=== PATIENT | female | born 1950 | race Caucasian/White ===

== ENCOUNTER 2020-12-01 10:25 | Emergency (ER) | payer MEDICARE, OTHER, SELFPAY ==
[2020-12-01] VITALS (11 sets, daily range): BP systolic 158–197; BP diastolic 74–103; PULSE 101–128; RESP 14–27; TEMP 36.4; O2SAT 95–99; BMI 41.5
--- NOTE | 2020-12-01 10:39 | ED_ITS ---
HPI - Chest Pain <ALEXUS Kcoh - Last Filed: 12/01/20 15:50> General Chief Complaint: Chest Pain Stated Complaint: pain just below neck in front Time Seen by Provider: 12/01/20 10:27 History of Present Illness HPI narrative: 70yo female with a history of HTN and obesity, presents to the emergency department for chest pain. She states last evening she fell asleep on the recliner with an ipad on her chest, when she woke at 5:00 a.m. she had substernal dull aching constant chest pain. She states it was worse when she tried to take a deep breath. Patient states after she woke she went to sleep in her bed, when she woke the chest pain remains still. She states it feels like a muscle soreness. It has decreased significantly but still remains. She denies any alleviating symptoms, reports taking deep breath can increased pain. She denies any fevers, cough, shortness of breath, dizziness, nausea, vomiting, diarrhea, or any other concerns. She losartan and metoprolol but has not taken HTCZ over the past few weeks. Related Data Home Medications Medication Instructions Recorded Confirmed HYDROCHLOROTHIAZIDE (#HCTZ) 25 mg PO EVERY DAY #0 11/27/11 aspirin 81 mg PO QDAY #0 11/27/11 losartan #0 12/18/12 melatonin #0 12/18/12 metoprolol tartrate #0 12/18/12 Allergies Allergy/AdvReac Type Severity Reaction Status Date / Time From FLONASE Allergy Mild Uncoded 12/01/20 10:41 LISINOPRIL Allergy Mild Uncoded 12/01/20 10:41 From OMNARIS Allergy Unknown CHEST Uncoded 12/01/20 10:41 DISCOMFORT Review of Systems <ALEXUS Koch - Last Filed: 12/01/20 15:50> Review of Systems Narrative: REVIEW OF SYSTEMS: GENERAL: Denies fevers. HENT: No head trauma. CARDIOVASCULAR: Reports chest pain, see HPI. RESPIRATORY: No shortness of breath. GASTROINTESTINAL: No nausea, vomiting, diarrhea, or constipation. MUSCULOSKELETAL: No weakness or injury. INTEGUMENTARY: No rash. Patient History <ALEXUS Koch - Last Filed: 12/01/20 15:50> Medical History HTN (hypertension) Social History Smoking Status: Never smoker Exam <ALEXUS Koch - Last Filed: 12/01/20 15:50> Initial Vital Signs Initial Vital Signs: Vital Signs Temperature 97.6 F 12/01/20 10:39 Pulse Rate 128 H 12/01/20 10:39 Respiratory Rate 18 12/01/20 10:39 Blood Pressure 195/103 H 12/01/20 10:39 Pulse Oximetry 98 12/01/20 10:39 PHYSICAL EXAMINATION: GENERAL: Awake and alert, slightly anxious appearing, obese female. HENT: Normocephalic, atraumatic. EYES: Conjunctiva pink, sclera white, no periorbital swelling. No discharge. CHEST: Normal to inspection and without deformities. CARDIOVASCULAR: S1 and S2 sounds normal. Regular rate and rhythm, no murmurs, clicks, or bruits. RESPIRATORY: Normal respiratory rate, trachea midline, airway patent. No st ridor, nasal flaring or accessory muscle use. Able to speak in full sentences. Lungs are clear in all curiel without wheeze, rhonchi, or crackles. No cough observed. MUSCULOSKELETAL: Normal gait and coordination. Equal tone and mass bilaterally. EXTREMITIES: Moves all extremities. SKIN: Warm, dry, soft, appropriate color for ethnicity. No lesions, rashes, or wounds to visualized areas. NEURO: Alert and Oriented X 3. Good coordination. No ataxia or cognitive issues. PSYCH: Appropriate affect and mood. <Neno Hector DO - Last Filed: 12/01/20 17:23> Initial Vital Signs Initial Vital Signs: Vital Signs Temperature 97.6 F 12/01/20 10:39 Pulse Rate 128 H 12/01/20 10:39 Respiratory Rate 18 12/01/20 10:39 Blood Pressure 195/103 H 12/01/20 10:39 Pulse Oximetry 98 12/01/20 10:39 Scores <ALEXUS Koch - Last Filed: 12/01/20 15:50> HEART Score Heart Score history: Slightly Suspicious Heart Score EKG: Normal Heart Score Age: > or = 65 years old Heart Score risk factors: 1-2 risk factors Heart Score troponin: < or = to normal limit Heart Score Total: 3 PERC Score Age greater than or equal to 50 years: Yes Heart rate greater than or equal to 100 bpm: Yes Room Air O2 Sat less than 95%: No Unilateral leg swelling: No Recent trauma or surgery: No Hemoptysis: No Prior PE or DVT: No Hormone Use: No Total PERC Score: 2 Wells' Criteria for PE Clinical signs and symptoms of DVT: No PE is #1 Dx or equally likely: No Heart rate > 100: Yes Immobilization at least 3 days or surg in previous 4 weeks: No History of PE or DVT: No Hemoptysis: No Malignancy w/Treatment within 6 months or palliative: No Wells' PE Score total: 1.5 Wells' Criteria for DVT Paralysis, paresis, or recent plaster immobilization of ext: No Previously documented DVT: No Alternative dx to DVT as likely or more likely: No Course <ALEXUS Koch - Last Filed: 12/01/20 15:50> Course Course Narrative: Initially, patient was given 1 nitro, no response to pain. 1200: Patient was really evaluated, denies any chest pain at this time. States that it resolved a few minutes ago. Toradol ordered for administration to see if this prevents return of chest pain. 1402: Discussed repeat test results with patient and family, EKG is within normal limits and troponin is negative. Patient still has a small amount of tachycardia, rate 103. She has not received a 10 of fluids, was instructed to keep her arm straight to increase fluid administration. Discussed that cardiac stress test was recommended as the next step. Discussed inpatient versus outpatient, patient states that she does not want to be admitted and would like to follow-up outpatient. 1413: Attempted to reach patient's primary care provider, unsuccessful. Discussed this with patient, she was encouraged to call the office today and or on Friday to schedule an appointment as soon as possible. We discussed strict return precautions. She was agreeable to plan of care. Orders Ordered: ED Orders 12/01/20 10:38 XR chest 1V Stat EKG-12 Lead Stat 12/01/20 10:50 Complete Blood Count AUTO DIFF Stat Comprehensive Metabolic Panel Stat D Dimer Stat Lipase Stat NT-proBNP (BNP-Adult 18+) Stat Troponin & CK Cardiac Panel Stat 12/01/20 12:50 EKG-12 Lead Stat 12/01/20 12:51 Troponin I Stat Discontinued Medications Aspirin (Aspirin 81 Mg Chew Tab) 324 mg PO NOW ONE Stop: 12/01/20 10:39 Last Admin: 12/01/20 11:02 Dose: 324 mg Documented by: RAKESH Sodium Chloride (Normal Saline 0.9%) 1,000 mls @ 150 mls/hr IV CONT KAROLYN Last Infusion: 12/01/20 12:45 Dose: 999 mls/hr Documented by: Admin: 12/01/20 11:07 Dose: 150 mls/hr Documented by: RAKESH Ketorolac Tromethamine (Ketorolac 60 Mg/2 Ml Vial) 30 mg IV NOW ONE Stop: 12/01/20 11:58 Last Admin: 12/01/20 12:03 Dose: 30 mg Documented by: RAKESH Nitroglycerin (Nitroglycerin 0.4 Mg Sl Tab) 0.4 mg SL NOW ONE Stop: 12/01/20 10:39 Last Admin: 12/01/20 11:05 Dose: 0.4 mg Documented by: RAKESH Consultations Consultation #1: Patient staffed with Dr. Hector, discussed tests, test results, and plan of care. Vital Signs Vital signs: Vital Signs - 8 hr 12/01/20 10:39 12/01/20 11:00 12/01/20 11:05 Temperature 97.6 F Pulse Rate 128 H 110 H 109 H Respiratory Rate 18 24 Blood Pressure 195/103 H 197/84 H 197/84 H Pulse Oximetry 98 12/01/20 11:30 12/01/20 12:00 12/01/20 12:30 Temperature Pulse Rate 104 H 104 H 102 H Respiratory Rate 16 14 20 Blood Pressure 166/77 H 166/78 H 177/84 H Pulse Oximetry 95 95 12/01/20 13:00 12/01/20 13:21 12/01/20 13:30 Temperature Pulse Rate 103 H 101 H 102 H Respiratory Rate 20 25 H 22 Blood Pressure Pulse Oximetry 99 96 95 12/01/20 14:00 12/01/20 14:17 Temperature Pulse Rate 105 H 106 H Respiratory Rate 27 H 25 H Blood Pressure 158/74 H Pulse Oximetry <Neno Hector DO - Last Filed: 12/01/20 17:23> Orders Ordered: ED Orders 12/01/20 10:38 XR chest 1V Stat EKG-12 Lead Stat 12/01/20 10:50 Complete Blood Count AUTO DIFF Stat Comprehensive Metabolic Panel Stat D Dimer Stat Lipase Stat NT-proBNP (BNP-Adult 18+) Stat Troponin & CK Cardiac Panel Stat 12/01/20 12:50 EKG-12 Lead Stat 12/01/20 12:51 Troponin I Stat Discontinued Medications Aspirin (Aspirin 81 Mg Chew Tab) 324 mg PO NOW ONE Stop: 12/01/20 10:39 Last Admin: 12/01/20 11:02 Dose: 324 mg Documented by: RAKESH Sodium Chloride (Normal Saline 0.9%) 1,000 mls @ 150 mls/hr IV CONT KAROLYN Last Infusion: 12/01/20 12:45 Dose: 999 mls/hr Documented by: Admin: 12/01/20 11:07 Dose: 150 mls/hr Documented by: RAKESH Ketorolac Tromethamine (Ketorolac 60 Mg/2 Ml Vial) 30 mg IV NOW ONE Stop: 12/01/20 11:58 Last Admin: 12/01/20 12:03 Dose: 30 mg Documented by: RAKESH Nitroglycerin (Nitroglycerin 0.4 Mg Sl Tab) 0.4 mg SL NOW ONE Stop: 12/01/20 10:39 Last Admin: 12/01/20 11:05 Dose: 0.4 mg Documented by: RAKESH Vital Signs Vital signs: Vital Signs - 8 hr 12/01/20 10:39 12/01/20 11:00 12/01/20 11:05 Temperature 97.6 F Pulse Rate 128 H 110 H 109 H Respiratory Rate 18 24 Blood Pressure 195/103 H 197/84 H 197/84 H Pulse Oximetry 98 12/01/20 11:30 12/01/20 12:00 12/01/20 12:30 Temperature Pulse Rate 104 H 104 H 102 H Respiratory Rate 16 14 20 Blood Pressure 166/77 H 166/78 H 177/84 H Pulse Oximetry 95 95 12/01/20 13:00 12/01/20 13:21 12/01/20 13:30 Temperature Pulse Rate 103 H 101 H 102 H Respiratory Rate 20 25 H 22 Blood Pressure Pulse Oximetry 99 96 95 12/01/20 14:00 12/01/20 14:17 Temperature Pulse Rate 105 H 106 H Respiratory Rate 27 H 25 H Blood Pressure 158/74 H Pulse Oximetry MDM - Chest Pain <Jenna Hedlin, PERSONAL HEALTH COACH - Last Filed: 12/01/20 15:50> Medical Records Data Attestation: I reviewed the patient's medical records. Lab Data Attestation: I reviewed the patient's lab results. Result diagrams: 12/01/20 10:50 12/01/20 10:50 Labs: Lab Results 12/01/20 12/01/20 12/01/20 Range/Units 10:50 10:50 10:50 WBC 9.8 (4.5-11.0) X10^3/uL RBC 4.90 (4.0-5.2) X10^6/uL Hgb 15.5 (12.0-16.0) g/dL Hct 47.2 H (36-46) % MCV 96.4 (80-100) fL MCH 31.7 (26-34) PG MCHC 32.9 (30-36) % RDW 13.4 (11.6-14.8) % Plt Count 215 (150-400) X10^3/uL Neut % (Auto) 82.1 H (50-75) % Lymph % (Auto) 9.9 L (25-40) % [place] % (Auto) 7.4 (3-14) % Eos % (Auto) 0.3 L (2-4) % Baso % (Auto) 0.3 (0-2) % Neut # (Auto) 8100 H (8598-0672) /uL Lymph # (Auto) 1000 L (0332-7435) /uL [place] # (Auto) 700 (0-900) /uL Eos # (Auto) 0 (0-450) /uL Baso # (Auto) 0 (0-100) /uL D-Dimer 205 (<230) ng/mL Sodium 138 (137-145) mmol/L Potassium 3.5 (3.4-5.1) mmol/L Chloride 102 (98-107) mmol/L Carbon Dioxide 30 (22-32) mmol/L BUN 22 H (7-17) mg/dL Creatinine 0.78 (0.52-1.04) mg/dL Estimated GFR > 60.0 (>60) mL/min BUN/Creatinine Ratio 28.2 H (6-22) Glucose 130 H (80-110) mg/dL Calcium 9.6 (8.4-10.2) mg/dL Total Bilirubin 0.8 (0.2-1.3) mg/dL AST 35 (14-36) IU/L ALT 25 (<35) IU/L Alkaline Phosphatase 86 (38-126) U/L Total Creatine Kinase 51 (30-135) U/L CK-MB (CK-2) TNP CK-MB (CK-2) Rel Index TNP Troponin I < 0.012 (0.01-0.034) ng/mL NT-Pro-B Natriuret Pep (<125) pg/mL Total Protein 7.6 (6.3-8.2) g/dL Albumin 4.6 (3.5-5.0) g/dL Globulin 3.0 (1.7-4.1) g/dL Albumin/Globulin Ratio 1.5 (1.0-2.8) Lipase 108 (23-300) U/L 12/01/20 12/01/20 Range/Units 10:50 12:51 WBC (4.5-11.0) X10^3/uL RBC (4.0-5.2) X10^6/uL Hgb (12.0-16.0) g/dL Hct (36-46) % MCV (80-100) fL MCH (26-34) PG MCHC (30-36) % RDW (11.6-14.8) % Plt Count (150-400) X10^3/uL Neut % (Auto) (50-75) % Lymph % (Auto) (25-40) % [place] % (Auto) (3-14) % Eos % (Auto) (2-4) % Baso % (Auto) (0-2) % Neut # (Auto) (5261-7477) /uL Lymph # (Auto) (2020-7321) /uL [place] # (Auto) (0-900) /uL Eos # (Auto) (0-450) /uL Baso # (Auto) (0-100) /uL D-Dimer (<230) ng/mL Sodium (137-145) mmol/L Potassium (3.4-5.1) mmol/L Chloride (98-107) mmol/L Carbon Dioxide (22-32) mmol/L BUN (7-17) mg/dL Creatinine (0.52-1.04) mg/dL Estimated GFR (>60) mL/min BUN/Creatinine Ratio (6-22) Glucose (80-110) mg/dL Calcium (8.4-10.2) mg/dL Total Bilirubin (0.2-1.3) mg/dL AST (14-36) IU/L ALT (<35) IU/L Alkaline Phosphatase (38-126) U/L Total Creatine Kinase (30-135) U/L CK-MB (CK-2) CK-MB (CK-2) Rel Index Troponin I < 0.012 (0.01-0.034) ng/mL NT-Pro-B Natriuret Pep 81 (<125) pg/mL Total Protein (6.3-8.2) g/dL Albumin (3.5-5.0) g/dL Globulin (1.7-4.1) g/dL Albumin/Globulin Ratio (1.0-2.8) Lipase (23-300) U/L Imaging Data Chest x-ray: Radiologist's Impression: [address] [id number] ReportSigned Patient: Dania Fraga LMR#: [id number]: 9Acct:[id number]/Sex: 70 / FDate of Service: 12/01/20Loc: EDAccession Number: [id number] Procedure: XR chest 1V Ordering Provider: Jenna Weston PROCEDURE: XR CHEST 1V INDICATIONS: chest pain TECHNIQUE: One view of the chest was acquired. COMPARISON: [facility], CHEST 1 VIEW, 04/18/2013, 10:04. [facility], CHEST 1 VIEW, 02/04/2013, 8:21. FINDINGS: Surgical changes and devices: None. Lungs and pleura: Lungs are clear. No pleural effusions or pneumothorax. Mediastinum: Mediastinal contours appear normal. Heart size is normal. The aorta is tortuous. Bones and chest wall: No suspicious bony lesions. Overlying soft tissues appear unremarkable. IMPRESSION: No acute cardiopulmonary abnormality. Dictated by: Vamsi Ma M.D. on 12/01/2020 at 11:14 Approved by: Vamsi Ma M.D. on 12/01/2020 at 11:15 ECG Data Interpretation: 1047: Sinus rhythm, rate 112, KS interval 96, QTC 647. No ST elevation or ST depression. T-wave inversion noted in V1. No ectopy. EKG also viewed by Dr. Hector. 1256: Sinus rate, rate 102, KS interval 186, QTC 466. No ST elevation or ST depression. T-wave inversion noted in V1. No ectopy. EKG also viewed by Dr. Hector. 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 I suspect patient's pain is most likely musculoskeletal given location and improvement of pain after Toradol administration. This may be related to how she fell asleep and with iPad on the chest. However, she does have some risk factors and it was recommended that she follows up with her doctor to discuss indications for a cardiac stress test. I have lower suspicion for ACS at this time given non-remarkable repeat EKGs, and serial negative troponins. Chest x-rays negative, chest pain was not changed with nitroglycerin. No worsening pain with exertion. Patient's heart score was 3, discussed admission versus outpatient. Patient strongly preferred outpatient. Attempted to contact patient's provider to discuss cardiac stress test, unable to get a hold of her at this time. Less likely PE, well's criteria of 1.5, PERC score of 2 which is lower risk, but D-dimer was ordered due to tachycardia and chest pain. D-dimer was negative. Less likely infectious etiology given lack of cough, presence of clear chest x- ray, and lack of fever. Patient did initially present with some tachycardia, this decreased after some time in the emergency department and fluids. However, she did have a rate of 103 upon discharge. Heart rate seemed to increase every time i walked into the room. We discussed very strict return precautions. Patient was agreeable to plan of care. <Neno Hector, DO - Last Filed: 12/01/20 17:23> Lab Data Labs: Lab Results 12/01/20 12/01/20 12/01/20 Range/Units 10:50 10:50 10:50 WBC 9.8 (4.5-11.0) X10^3/uL RBC 4.90 (4.0-5.2) X10^6/uL Hgb 15.5 (12.0-16.0) g/dL Hct 47.2 H (36-46) % MCV 96.4 (80-100) fL MCH 31.7 (26-34) PG MCHC 32.9 (30-36) % RDW 13.4 (11.6-14.8) % Plt Count 215 (150-400) X10^3/uL Neut % (Auto) 82.1 H (50-75) % Lymph % (Auto) 9.9 L (25-40) % [place] % (Auto) 7.4 (3-14) % Eos % (Auto) 0.3 L (2-4) % Baso % (Auto) 0.3 (0-2) % Neut # (Auto) 8100 H (7837-6494) /uL Lymph # (Auto) 1000 L (9064-8676) /uL [place] # (Auto) 700 (0-900) /uL Eos # (Auto) 0 (0-450) /uL Baso # (Auto) 0 (0-100) /uL D-Dimer 205 (<230) ng/mL Sodium 138 (137-145) mmol/L Potassium 3.5 (3.4-5.1) mmol/L Chloride 102 (98-107) mmol/L Carbon Dioxide 30 (22-32) mmol/L BUN 22 H (7-17) mg/dL Creatinine 0.78 (0.52-1.04) mg/dL Estimated GFR > 60.0 (>60) mL/min BUN/Creatinine Ratio 28.2 H (6-22) Glucose 130 H (80-110) mg/dL Calcium 9.6 (8.4-10.2) mg/dL Total Bilirubin 0.8 (0.2-1.3) mg/dL AST 35 (14-36) IU/L ALT 25 (<35) IU/L Alkaline Phosphatase 86 (38-126) U/L Total Creatine Kinase 51 (30-135) U/L CK-MB (CK-2) TNP CK-MB (CK-2) Rel Index TNP Troponin I < 0.012 (0.01-0.034) ng/mL NT-Pro-B Natriuret Pep (<125) pg/mL Total Protein 7.6 (6.3-8.2) g/dL Albumin 4.6 (3.5-5.0) g/dL Globulin 3.0 (1.7-4.1) g/dL Albumin/Globulin Ratio 1.5 (1.0-2.8) Lipase 108 (23-300) U/L 12/01/20 12/01/20 Range/Units 10:50 12:51 WBC (4.5-11.0) X10^3/uL RBC (4.0-5.2) X10^6/uL Hgb (12.0-16.0) g/dL Hct (36-46) % MCV (80-100) fL MCH (26-34) PG MCHC (30-36) % RDW (11.6-14.8) % Plt Count (150-400) X10^3/uL Neut % (Auto) (50-75) % Lymph % (Auto) (25-40) % [place] % (Auto) (3-14) % Eos % (Auto) (2-4) % Baso % (Auto) (0-2) % Neut # (Auto) (3317-1682) /uL Lymph # (Auto) (8203-6183) /uL [place] # (Auto) (0-900) /uL Eos # (Auto) (0-450) /uL Baso # (Auto) (0-100) /uL D-Dimer (<230) ng/mL Sodium (137-145) mmol/L Potassium (3.4-5.1) mmol/L Chloride (98-107) mmol/L Carbon Dioxide (22-32) mmol/L BUN (7-17) mg/dL Creatinine (0.52-1.04) mg/dL Estimated GFR (>60) mL/min BUN/Creatinine Ratio (6-22) Glucose (80-110) mg/dL Calcium (8.4-10.2) mg/dL Total Bilirubin (0.2-1.3) mg/dL AST (14-36) IU/L ALT (<35) IU/L Alkaline Phosphatase (38-126) U/L Total Creatine Kinase (30-135) U/L CK-MB (CK-2) CK-MB (CK-2) Rel Index Troponin I < 0.012 (0.01-0.034) ng/mL NT-Pro-B Natriuret Pep 81 (<125) pg/mL Total Protein (6.3-8.2) g/dL Albumin (3.5-5.0) g/dL Globulin (1.7-4.1) g/dL Albumin/Globulin Ratio (1.0-2.8) Lipase (23-300) U/L Discharge Plan Departure Patient Disposition: Home Clinical Impression: Atypical chest pain Instructions: DI for Atypical Chest Pain, DI for Costochondritis Activity Restrictions/Additional Instructions: Thank you for entrusting me with your care today. As discussed, your laboratory work, EKG, chest x-ray are within normal limits. It is possible that your pain may be musculoskeletal, however given risk factors of hypertension and age, it is recommended that you follow-up with your provider to discuss a cardiac stress test. Attempted to call the clinic today, there was no answer. Please call and schedule an appointment as soon as possible on Friday, tell them you have been seen in the emergency department for chest pain and a follow-up appointment and cardiac stress test was recommended. Please return emergency department for any new or worsening symptoms including worsening chest pain, fevers, shortness of breath, dizziness, nausea, vomiting, diarrhea, or any other concerns. Prescriptions: No Action HYDROCHLOROTHIAZIDE (#HCTZ) 25 mg PO EVERY DAY Qty: 0 RF: 0 aspirin 81 MG tablet,chewable 81 mg PO QDAY Qty: 0 RF: 0 losartan 50 MG tablet Qty: 0 RF: 0 metoprolol tartrate 25 MG tablet Qty: 0 RF: 0 melatonin 3 MG tablet Qty: 0 RF: 0 <Neno Hector DO - Last Filed: 12/01/20 17:23> Cosign ED Attending Cosignature Attestation: I was immediately available in the department for consultation. This documentation has been reviewed and I agree with assessment and plan. Supervised by Neno Hector DO
[2020-12-01] MEDS: ASPIRIN 81 MG CHEW TAB 324 MG PO (11:02)
[2020-12-01] MEDS: NITROGLYCERIN 0.4 MG SL TAB SL (11:05)
[2020-12-01] MEDS: SODIUM CHLORIDE 0.9% 1,000 ML 150 ML IV (11:07)
[2020-12-01 11:12] LABS: Add Manual Diff / Slide Review NO; Basophils Absolute Auto 0 /uL (0-100); Basophils Percent Auto 0.3 % (0-2); Eosinophils Absolute Auto 0 /uL (0-450); Eosinophils Percent Auto 0.3 % (2-4); Hematocrit 47.2 % (36-46); Hemoglobin 15.5 g/dL (12.0-16.0); Lymphocytes Absolute Auto 1000 /uL (1100-4500); Lymphocytes Percent Auto 9.9 % (25-40); Mean Corpuscular HGB Conc 32.9 % (30-36); Mean Corpuscular Hemoglobin 31.7 PG (26-34); Mean Corpuscular Volume 96.4 fL (80-100); Monocytes Absolute Auto 700 /uL (0-900); Monocytes Percent Auto 7.4 % (3-14); Neutrophils Absolute Auto 8100 /uL (1500-7000); Neutrophils Percent Auto 82.1 % (50-75); Platelet Count 215 X10^3/uL (150-400); Red Cell Distribution Width 13.4 % (11.6-14.8); White Blood Cell Count 9.8 X10^3/uL (4.5-11.0)
[2020-12-01 11:23] LABS: D Dimer 205 ng/mL (<230)
[2020-12-01 11:27] LABS: Alanine Aminotransferase 25 IU/L (<35); Albumin 4.6 g/dL (3.5-5.0); Albumin Globulin Ratio 1.5 (1.0-2.8); Alkaline Phosphatase 86 U/L (38-126); Aspartate Aminotransferase 35 IU/L (14-36); BUN Creatinine Ratio 28.2 (6-22); Bilirubin Total 0.8 mg/dL (0.2-1.3); Blood Urea Nitrogen 22 mg/dL (7-17); Calcium 9.6 mg/dL (8.4-10.2); Carbon Dioxide 30 mmol/L (22-32); Chloride 102 mmol/L (98-107); Creatine Kinase 51 U/L (30-135); Estimated Glomerular Filt Rate > 60.0 mL/min (>60); Glucose 130 mg/dL (80-110); HEMOLYSIS 32 (0-50); Lipase 108 U/L (23-300); Potassium 3.5 mmol/L (3.4-5.1); Sodium 138 mmol/L (137-145); Total Protein 7.6 g/dL (6.3-8.2)
[2020-12-01 11:36] LABS: NT-proBNP (BNP-Adult 18+) 81 pg/mL (<125)
[2020-12-01 11:39] LABS: Troponin I < 0.012 ng/mL (0.01-0.034)
[2020-12-01] MEDS: KETOROLAC 60 MG/2 ML VIAL 30 MG IV (12:03)
--- NOTE | 2020-12-01 12:12 | PC.NURSE ---
At patients request spouse updated via phone
[2020-12-01 13:32] LABS: Troponin I < 0.012 ng/mL (0.01-0.034)
== END 2020-12-01 14:22 | disposition home or self-care (01) ==
PROVIDERS: Emergency Provider Nurse Practitioner
DX: R07.89 Other chest pain (principal); I10 Essential (primary) hypertension; E66.9 Obesity, unspecified; Z68.41 Body mass index [BMI] 40.0-44.9, adult
CPT/HCPCS: 36415; 71045; 80053; 82550; 83690; 83880; 84484; 85025; 85379; 93005; 93010; 96361; 96374; 99284; J1885

== ENCOUNTER 2024-01-23 21:05 | Emergency (ER) | payer MEDICARE, OTHER, SELFPAY ==
[2024-01-23] VITALS (8 sets, daily range): BP systolic 140–194; BP diastolic 60–91; PULSE 37–84; RESP 18; TEMP 36.9; O2SAT 91–98; BMI 45.3
[2024-01-23 21:36] LABS: Add Manual Diff / Slide Review NO; Basophils Absolute Auto 0 /uL (0-100); Basophils Percent Auto 0.4 % (0-2); Eosinophils Absolute Auto 100 /uL (0-450); Hematocrit 47.2 % (36-46); Hemoglobin 15.7 g/dL (12.0-16.0); Lymphocytes Absolute Auto 1900 /uL (1100-4500); Lymphocytes Percent Auto 22.3 % (25-40); Mean Corpuscular HGB Conc 33.4 % (30-36); Mean Corpuscular Hemoglobin 31.4 PG (26-34); Monocytes Absolute Auto 800 /uL (0-900); Neutrophils Absolute Auto 5800 /uL (1500-7000); Neutrophils Percent Auto 67.3 % (50-75); Platelet Count 230 X10^3/uL (150-400); Red Blood Cell Count 5.02 X10^6/uL (4.0-5.2); Red Cell Distribution Width 13.7 % (11.6-14.8); White Blood Cell Count 8.7 X10^3/uL (4.5-11.0)
--- NOTE | 2024-01-23 21:41 | DI.US.S_ITS ---
PROCEDURE: US ABDOMEN LIMITED INDICATIONS: RUQ ABD PAIN TECHNIQUE: Real-time focused scanning was performed of the abdomen, with image documentation. COMPARISON: None. FINDINGS: This study is highly limited by patient body habitus. The liver is normal in size and demonstrates no suspicious lesions. The gallbladder is not seen. The sonographic Yousif sign is negative. The biliary tree is not seen. No andrew pancreas abnormality can be seen. The pancreas demonstrates generalized echogenicity. No free fluid can be seen. IMPRESSION: Nondiagnostic study, without visualization of the gallbladder or biliary tree. Note: Concordant preliminary findings given by the property utilization manager upon the completion of the examination to emergency department. Dictated by: Lei Salazar M.D. on 01/23/2024 at 21:30 Approved by: Lei Salazar M.D. on 01/23/2024 at 21:32
--- NOTE | 2024-01-23 21:51 | ED_ITS ---
HPI - Abdominal Pain General Chief Complaint: Abdominal Pain Stated Complaint: thinks appendicitis Time Seen by Provider: 01/23/24 21:37 Source: patient Mode of arrival: Ambulatory History of Present Illness HPI narrative: 73-year-old female presents for approximately 7 hours of right-sided ?twinging? abdominal pain. Patient points to her right upper quadrant just below her ribcage as source of pain. Patient can not identify what makes the pain come or go, no medications taken at home for symptoms. Patient states that numerous family members have had issues with her appendix and she was concerned that she may have appendicitis. Related Data Home Medications Medication Instructions Recorded Confirmed HYDROCHLOROTHIAZIDE (#HCTZ) 25 mg PO EVERY DAY ##0 11/27/11 aspirin 81 mg chewable tablet 81 mg PO QDAY ##0 11/27/11 losartan 50 mg tablet ##0 12/18/12 melatonin 3 mg tablet ##0 12/18/12 metoprolol tartrate 25 mg tablet ##0 12/18/12 Allergies Allergy/AdvReac Type Severity Reaction Status Date / Time From FLONASE Allergy Mild Uncoded 12/01/20 10:41 LISINOPRIL Allergy Mild Uncoded 12/01/20 10:41 From OMNARIS Allergy Unknown CHEST Uncoded 12/01/20 10:41 DISCOMFORT Review of Systems Review of Systems Narrative: Negative except as noted above Patient History Medical History HTN (hypertension) Social History Smoking Status: Never smoker Smoking Status: Never smoker Substance Use Type: does not use Exam Initial Vital Signs Initial Vital Signs: Vital Signs Pulse Rate 84 01/23/24 21:15 Pulse Oximetry 96 01/23/24 21:15 Const: Awake, alert, frail, nontoxic Cardiac: regular rate, regular rhythm RESP: unlabored, clear bilaterally, no wheezing GI: Soft, no significant reproducible to palpation in the right upper or right lower quadrants Skin: Warm, Dry, intact, no rashes Neuro: AO x3, CN II-XII grossly intact, moves all extremities Course Orders Ordered: Discontinued Medications Ondansetron HCl (Ondansetron 4 Mg Odt) 4 mg PO NOW PRN PRN Reason: Nausea And Vomiting Ondansetron HCl (Ondansetron 4 Mg/2 Ml Inj) 4 mg IV NOW PRN PRN Reason: Nausea And Vomiting Vital Signs Vital signs: Vital Signs - 8 hr 01/23/24 21:15 01/23/24 21:16 01/23/24 21:16 Temperature Pulse Rate 84 80 Respiratory Rate Blood Pressure 194/91 H Pulse Oximetry 96 98 Oxygen Delivery Method 01/23/24 21:21 01/23/24 21:30 01/23/24 22:00 Temperature 98.4 F Pulse Rate 81 75 83 Respiratory Rate 18 Blood Pressure 194/91 H Pulse Oximetry 98 97 97 Oxygen Delivery Method Room Air 01/23/24 22:44 01/23/24 22:45 01/23/24 22:45 Temperature Pulse Rate 37 L 69 Respiratory Rate Blood Pressure 160/76 H Pulse Oximetry 91 97 Oxygen Delivery Method MDM - Abdominal Pain Differential Diagnosis Differential diagnosis: Likely abdominal pain, acute appendicitis and calculus of kidney Lab Data 01/23/24 21:25 01/23/24 21:25 Labs: Lab Results 01/23/24 01/23/24 Range/Units 21:25 22:03 WBC 8.7 (4.5-11.0) X10^3/uL RBC 5.02 (4.0-5.2) X10^6/uL Hgb 15.7 (12.0-16.0) g/dL Hct 47.2 H (36-46) % MCV 94.0 (80-100) fL MCH 31.4 (26-34) PG MCHC 33.4 (30-36) % RDW 13.7 (11.6-14.8) % Plt Count 230 (150-400) X10^3/uL Neut % (Auto) 67.3 (50-75) % Lymph % (Auto) 22.3 L (25-40) % [place] % (Auto) 9.0 (3-14) % Eos % (Auto) 1.0 L (2-4) % Baso % (Auto) 0.4 (0-2) % Neut # (Auto) 5800 (5526-9977) /uL Lymph # (Auto) 1900 (8626-5369) /uL [place] # (Auto) 800 (0-900) /uL Eos # (Auto) 100 (0-450) /uL Baso # (Auto) 0 (0-100) /uL Sodium 138 (137-145) mmol/L Potassium 4.2 (3.4-5.1) mmol/L Chloride 105 (98-107) mmol/L Carbon Dioxide 30 (22-32) mmol/L BUN 25 H (7-17) mg/dL Creatinine 1.56 H (0.52-1.04) mg/dL Estimated GFR 35 L (>60) mL/min BUN/Creatinine Ratio 16.0 (6-22) Glucose 115 H (80-110) mg/dL Calcium 9.9 (8.4-10.2) mg/dL Total Bilirubin 0.6 (0.2-1.3) mg/dL AST 26 (14-36) IU/L ALT 24 (<35) IU/L Alkaline Phosphatase 92 (38-126) U/L Total Protein 6.6 (6.3-8.2) g/dL Albumin 4.1 (3.5-5.0) g/dL Globulin 2.5 (1.7-4.1) g/dL Albumin/Globulin Ratio 1.6 (1.0-2.8) Lipase 172 (23-300) U/L Urine RBC None seen (0-5/HPF) Urine WBC None seen (0-5/HPF) Ur Squamous Epith Cells 0-1 /hpf (0-5/HPF) Urine Bacteria None seen (None) Ur Culture Indicated? Cult not indicated Vol Urine Centrifuged 10ml (spun) Point of care testing: Urine Dip Bedside Urine Glucose Negative Bedside Urine Bilirubin - Negative Bedside Urine Ketone - Negative Urine Specific [place] 1.015 Bedside Urine Occult Blood + Bedside Urine pH 6.0 Bedside Urine Protein - Negative Bedside Urine Urobilinogen - Negative Bedside Urine Nitrite - Negative Bedside Urine Leukocytes - Negative Esterase Imaging Data US - abdomen: Radiologist's Impression: PROCEDURE: US ABDOMEN LIMITED INDICATIONS: RUQ ABD PAIN TECHNIQUE: Real-time focused scanning was performed of the abdomen, with image documentation. COMPARISON: None. FINDINGS: This study is highly limited by patient body habitus. The liver is normal in size and demonstrates no suspicious lesions. The gallbladder is not seen. The sonographic Yousif sign is negative. The biliary tree is not seen. No andrew pancreas abnormality can be seen. The pancreas demonstrates generalized echogenicity. No free fluid can be seen. IMPRESSION: Nondiagnostic study, without visualization of the gallbladder or biliary tree. Note: Concordant preliminary findings given by the bass singer upon the completion of the examination to emergency department. Dictated by: Lei Salazar M.D. on 01/23/2024 at 21:30 Approved by: Lei Salazar M.D. on 01/23/2024 at 21:32 CT scan - abdomen/pelvis: Radiologist's Impression: PROCEDURE: CT ABDOMEN PELVIS WO CON INDICATIONS: RUQ AND RLQ ABD PAIN TECHNIQUE: Axial sections were acquired from the lung bases to the pubic symphysis. Coronal and sagittal reformats were performed. For radiation dose reduction, the following was used: automated exposure control, adjustment of mA and/or kV according to patient size. COMPARISON: [facility], CT, PE STUDY (CTA CHEST), 12/18/2012, 8:30. [facility], US, US ABDOMEN LIMITED, 01/23/2024, 22:05. FINDINGS: Image quality: Diagnostic. Lower Chest: A small hiatal hernia is incidentally noted. URINARY: Right Kidney: No stones or hydronephrosis. Right Ureter: No hydroureter. Left Kidney: There is a 3 mm nonobstructing left-sided kidney stone. No hydronephrosis is seen. Left Ureter: No hydroureter. Bladder: Normal wall thickness. No stones. ABDOMEN: Liver: No contour-deforming solid mass. Gallbladder: No radiopaque gallstones or wall thickening. No findings of right upper quadrant inflammatory change can be seen. Biliary ducts: No biliary dilation. Pancreas: No ductal dilation. Spleen: Size is within normal limits. Adrenal Glands: There is a right adrenal nodule seen that measures 5 Hounsfield units and measures 2.5 cm. There is a left adrenal nodule seen that measures 1.9 cm and measures -2Hounsfield units. Stomach and Bowel: No appendix (either normal or abnormal) is identified on this study. No focal right lower quadrant inflammatory change can be seen. Colonic diverticulosis is seen, without findings of active diverticulitis. The more proximal colon is within normal limits. No dilated loops of small bowel are seen. Peritoneum: No abnormal intraperitoneal fluid. No free air. Ventral Wall: There is a upoy-rt-jcasokbj fat containing periumbilical hernia Abdominal Nodes: No enlarged retroperitoneal or mesenteric lymph nodes. Vessels: Aorta and inferior vena cava are normal in size. Atherosclerotic calcification is noted. PELVIS: Pelvic Organs: The endometrial stripe appears thickened at 13 mm. No adnexal masses are seen. Pelvic Nodes: Unremarkable. Miscellaneous: No inguinal hernias are seen. Bones: Age-appropriate bony degenerative changes are seen. IMPRESSION: Normal appearing gallbladder, without right upper quadrant inflammatory change. No appendix (either normal or abnormal) is identified on this study. No significant right lower quadrant inflammatory change is seen. Endometrial stripe appears thickened at 13 mm. Please correlate with postmenopausal bleeding. If clinically appropriate, a follow-up pelvic ultrasound could be considered for further evaluation. Additional findings: Small hiatal hernia Benign bilateral lipid rich adrenal adenomas, stable from 2012 3 mm nonobstructing left-sided kidney stone. Szcr-hl-gddbziei fat containing periumbilical hernia Diverticulosis, without active diverticulitis Dictated by: Lei Salazar M.D. on 01/23/2024 at 21:54 Approved by: Lei Salazar M.D. on 01/23/2024 at 22:00 [facility] Narrative Medical decision making narrative: Well-appearing patient with right-sided symptoms. Patient reports that she was concerned about her appendix, however her pain is mostly in the right upper quadrant and more consistent with either hepatic or biliary process. Abdomen is soft, negative Yousif's sign. Ultrasound of the abdomen is nondiagnostic due to overlying bowel gas. Plan to order CT of the abdomen and pelvis. Laboratory work thus far is relatively unremarkable. There was no leukocytosis, liver enzymes are normal. Patient has a creatinine of 1.56 and GFR of 35, back in 2020 creatinine was 0.78 and GFR greater than 60, however there are no interval laboratory results to determine chronicity of this finding. CT of the abdomen and pelvis shows no acute abnormalities. The appendix was not visualized but there were no surrounding inflammatory changes indicative of appendicitis. With normal labs, reassuring abdominal exam, and no secondary signs of appendicitis patient stable for discharge home. She was informed of her creatinine results as well as her CT findings. Recommended close PCP follow up, especially for her elevated creatinine. Strict ED return precautions discussed at bedside with patient and . Discharge Plan Departure Patient Disposition: Home Clinical Impression: Abdominal pain Instructions: DI for Abdominal Pain-Adult Activity Restrictions/Additional Instructions: Your laboratory work today did not show any signs infection. I would like to point out that your kidney function is higher today than it was in 202, however I do not have any interval labs to compare to other than from December 01, 2020. Your appendix was not identified on the CT scan, however there were no inflammatory changes in your pain is not consistent with appendicitis. If you continue to experience pain you may return for repeat evaluation in 24-48 hours, however I have a very low suspicion for appendicitis at this time. Please follow up with your primary care physician Prescriptions: No Action HYDROCHLOROTHIAZIDE (#HCTZ) 25 mg PO EVERY DAY Qty: 0 aspirin 81 MG tablet,chewable 81 mg PO QDAY Qty: 0 losartan 50 MG tablet Qty: 0 metoprolol tartrate 25 MG tablet Qty: 0 melatonin 3 MG tablet Qty: 0 Stand Alone Forms: Patient Portal/API
[2024-01-23 21:52] LABS: Alanine Aminotransferase 24 IU/L (<35); Albumin 4.1 g/dL (3.5-5.0); Albumin Globulin Ratio 1.6 (1.0-2.8); Alkaline Phosphatase 92 U/L (38-126); Aspartate Aminotransferase 26 IU/L (14-36); Bilirubin Total 0.6 mg/dL (0.2-1.3); Blood Urea Nitrogen 25 mg/dL (7-17); Calcium 9.9 mg/dL (8.4-10.2); Carbon Dioxide 30 mmol/L (22-32); Chloride 105 mmol/L (98-107); Estimated Glomerular Filt Rate 35 mL/min (>60); Globulin 2.5 g/dL (1.7-4.1); Glucose 115 mg/dL (80-110); HEMOLYSIS 41 (0-50); Lipase 172 U/L (23-300); Potassium 4.2 mmol/L (3.4-5.1); Sodium 138 mmol/L (137-145); Total Protein 6.6 g/dL (6.3-8.2)
--- NOTE | 2024-01-23 22:17 | DI.CT.S_ITS ---
PROCEDURE: CT ABDOMEN PELVIS WO CON INDICATIONS: RUQ AND RLQ ABD PAIN TECHNIQUE: Axial sections were acquired from the lung bases to the pubic symphysis. Coronal and sagittal reformats were performed. For radiation dose reduction, the following was used: automated exposure control, adjustment of mA and/or kV according to patient size. COMPARISON: [facility], CT, PE STUDY (CTA CHEST), 12/18/2012, 8:30. [facility], US, US ABDOMEN LIMITED, 01/23/2024, 22:05. FINDINGS: Image quality: Diagnostic. Lower Chest: A small hiatal hernia is incidentally noted. URINARY: Right Kidney: No stones or hydronephrosis. Right Ureter: No hydroureter. Left Kidney: There is a 3 mm nonobstructing left-sided kidney stone. No hydronephrosis is seen. Left Ureter: No hydroureter. Bladder: Normal wall thickness. No stones. ABDOMEN: Liver: No contour-deforming solid mass. Gallbladder: No radiopaque gallstones or wall thickening. No findings of right upper quadrant inflammatory change can be seen. Biliary ducts: No biliary dilation. Pancreas: No ductal dilation. Spleen: Size is within normal limits. Adrenal Glands: There is a right adrenal nodule seen that measures 5 Hounsfield units and measures 2.5 cm. There is a left adrenal nodule seen that measures 1.9 cm and measures -2Hounsfield units. Stomach and Bowel: No appendix (either normal or abnormal) is identified on this study. No focal right lower quadrant inflammatory change can be seen. Colonic diverticulosis is seen, without findings of active diverticulitis. The more proximal colon is within normal limits. No dilated loops of small bowel are seen. Peritoneum: No abnormal intraperitoneal fluid. No free air. Ventral Wall: There is a jlhr-ee-eehdweex fat containing periumbilical hernia Abdominal Nodes: No enlarged retroperitoneal or mesenteric lymph nodes. Vessels: Aorta and inferior vena cava are normal in size. Atherosclerotic calcification is noted. PELVIS: Pelvic Organs: The endometrial stripe appears thickened at 13 mm. No adnexal masses are seen. Pelvic Nodes: Unremarkable. Miscellaneous: No inguinal hernias are seen. Bones: Age-appropriate bony degenerative changes are seen. IMPRESSION: Normal appearing gallbladder, without right upper quadrant inflammatory change. No appendix (either normal or abnormal) is identified on this study. No significant right lower quadrant inflammatory change is seen. Endometrial stripe appears thickened at 13 mm. Please correlate with postmenopausal bleeding. If clinically appropriate, a follow-up pelvic ultrasound could be considered for further evaluation. Additional findings: Small hiatal hernia Benign bilateral lipid rich adrenal adenomas, stable from 2012 3 mm nonobstructing left-sided kidney stone. Ptmb-cq-[id number] fat containing periumbilical hernia Diverticulosis, without active diverticulitis Dictated by: Lei Salazar M.D. on 01/23/2024 at 21:54 Approved by: Lei Salazar M.D. on 01/23/2024 at 22:00
[2024-01-23 22:33] LABS: Bacteria Urine None Seen; Culture Indicated Urine Cult Not Indicated; RBC Urine None Seen (0-5/HPF); Squamous Epithelial Cell Urine 0-1 /HPF (0-5/HPF); Urine Volume 10mL (spun); WBC Urine None Seen (0-5/HPF)
== END 2024-01-23 23:21 | disposition home or self-care (01) ==
PROVIDERS: Emergency Provider Emergency Medicine
DX: R10.11 Right upper quadrant pain (principal)
CPT/HCPCS: 36415; 74176; 76705; 80053; 81003; 81015; 83690; 85025; 93005; 99284

== ENCOUNTER 2025-07-11 16:49 | Emergency (ER) | payer MEDICARE, OTHER, SELFPAY ==
[2025-07-11 17:10] VITALS: BP 168/79; PULSE 85; RESP 18; TEMP 37.1; O2SAT 95; BMI 46.8
--- NOTE | 2025-07-11 20:03 | ED.NEUROSD ---
HPI - Neuro Symptoms/Deficit General Chief Complaint: Neuro Symptoms/Deficit Stated Complaint: Vision change (blurry, out of focus) x 1 day Time Seen by Provider: 07/11/25 20:01 Source: patient Mode of arrival: Family Vehicle History of Present Illness HPI Narrative: 74-year-old woman with a history of hypertension presents with change in vision. She notes that she sometimes will have central pixilated vision changes that comes and goes. Over the last 24 hours she has noticed that that has been more pronounced and is concerned that there is some peripheral decreased vision as well. She is having no headaches, no other neurologic symptoms. She currently has 2 pair of glasses neither of which were prescription 1 for close and 1 for further away. She is concerned that she may have a retinal detachment and was not able to get into an commercial kitchen service technician today. On Anticoagulants: No Related Data Home Medications ?Medication ?Instructions ?Recorded ?Confirmed HYDROCHLOROTHIAZIDE (#HCTZ) 25 mg PO EVERY DAY ##0 11/27/11 aspirin 81 mg chewable tablet 81 mg PO QDAY ##0 11/27/11 losartan 50 mg tablet ##0 12/18/12 melatonin 3 mg tablet ##0 12/18/12 metoprolol tartrate 25 mg tablet ##0 12/18/12 Allergies Allergy/AdvReac Type Severity Reaction Status Date / Time From FLONASE Allergy Mild Uncoded 07/11/25 17:10 LISINOPRIL Allergy Mild Uncoded 07/11/25 17:10 From OMNARIS Allergy Unknown CHEST Uncoded 07/11/25 17:10 DISCOMFORT Review of Systems Review of Systems Narrative: Pertinent positive and negative findings as per HPI Hematologic/Lymphatic On Anticoagulants: No Patient History Medical History HTN (hypertension) Social History Smoking Status: Never smoker Smoking Status: Never smoker Exam Initial Vital Signs Initial Vital Signs: Vital Signs Temperature 98.8 F 07/11/25 17:10 Pulse Rate 85 07/11/25 17:10 Respiratory Rate 18 07/11/25 17:10 Blood Pressure 168/79 H 07/11/25 17:10 Pulse Oximetry 95 07/11/25 17:10 Oxygen Delivery Method Room Air 07/11/25 17:10 General: Healthy appearing, in no acute distress. Able to give a complete and coherent history. Well-nourished well-developed HEENT: Moist mucous membranes, normal sclera with reactive pupils, Funduscopic exam shows normal cup-to-disc ratio, no arterial abnormalities. No obvious retinal abnormalities Respiratory: Lungs are clear to auscultation, no wheezing no rales no rhonchi. Full and symmetrical air movement Cardiac: Regular rate and rhythm no murmurs no bruits Neurologic: Grossly neurologically intact with no obvious asymmetries or abnormalities. On visual exam when she puts her glasses on the blurriness resolves. On direct peripheral field testing I am not able to appreciate abnormalities Extremities: No trauma, well perfused Psych: Cooperative, appropriate insight and affect Course Vital Signs Vital signs: Vital Signs - 8 hr 07/11/25 17:10 Temperature 98.8 F Pulse Rate 85 Respiratory Rate 18 Blood Pressure 168/79 H Pulse Oximetry 95 Oxygen Delivery Method Room Air MDM - Neuro Symptoms/Deficit MDM Narrative Medical decision making narrative: 74-year-old woman who presents with visual changes waxing and waning over the last couple of days to weeks. I had a difficult time ascertaining the exact changes that she was noting. On her exam she does not have any temporal artery tenderness, her neurologic exam is entirely benign. Funduscopic exam is quite reassuring. No obvious visual field deficits either monocular early or binocular. I do not think she has a retinal detachment, stroke, retinal artery occlusion, acute glaucoma or alternate finding that would be immediately vision threatening, no obvious ocular trauma, do not suspect temporal arteritis. I am not seeing any indication for advanced imaging at this time. All of this is discussed with the patient. My recommendation was that she follow up with the commercial kitchen service technician within the next couple of days. We clearly reviewed reasons to return to the emergency department and she is safe for discharge Discharge Plan Departure Patient Disposition: Home Clinical Impression: Alteration in vision Activity Restrictions/Additional Instructions: Thank you for coming into I agree that some of these changes are concerning. With your description and with my physical exam in the emergency department I am not finding anything to suggest stroke, retinal detachment, retinal artery occlusion, temporal arteritis or other findings that would indicate you need to be in the hospital or have further testing done in the emergency department. I would recommend that you call tomorrow to see if you can get into an ophthalmology office for ER follow up with complaints of visual change. If you find that you are getting worse or develop any new symptoms, please feel free to return to the emergency department for further evaluation. Prescriptions: No Action HYDROCHLOROTHIAZIDE (#HCTZ) 25 mg PO EVERY DAY Qty: 0 aspirin 81 MG tablet,chewable 81 mg PO QDAY Qty: 0 losartan 50 MG tablet Qty: 0 metoprolol tartrate 25 MG tablet Qty: 0 melatonin 3 MG tablet Qty: 0 Stand Alone Forms: Patient Portal/API
--- NOTE | 2025-07-11 20:12 | PC.NURSE ---
pt states she has floaters intermittently but yesterday she started having floaters that have not stopped plus she was having other vision issues, pt moves all extremities well speech is clear no other neural s/s
[2025-07-11 20:46] VITALS: BP 121/70; PULSE 77; RESP 16; O2SAT 95
== END 2025-07-11 20:46 | disposition home or self-care (01) ==
PROVIDERS: Emergency Provider Emergency Medicine
DX: H54.7 Unspecified visual loss (principal)
CPT/HCPCS: 99281